=== PATIENT | female | born 1975 | race Caucasian/White ===

== ENCOUNTER → 2018-05-13 15:51 | Outpatient (CLI) | payer OTHER, SELFPAY ==
[2018-05-18 13:49] LABS: HPV APTIMA, High Risk Negative (Negative)
== END ==
PROVIDERS: Visit Provider Obstetrics & Gynecology
DX: Z12.4 Encounter for screening for malignant neoplasm of cervix (principal); N89.8 Other specified noninflammatory disorders of vagina
CPT/HCPCS: 87070; 87077; 87186; 87205; 88175; G0145

== ENCOUNTER → 2020-01-21 09:17 | Outpatient (CLI) | payer BC, SELFPAY ==
--- NOTE | 2020-01-21 09:20 | US_ITS ---
STUDY: ULTRASOUND BREAST - RIGHT REASON FOR EXAM: Female, 44 years old. swollen lymphnodes mammo today TECHNIQUE: Axial and longitudinal images of the RIGHT breast were performed with a high resolution ultrasound transducer. # OF IMAGES: 55 COMPARISON: None. FINDINGS: RIGHT Breast: There is no abnormality in the soft tissues of the breast to correlate with the palpable abnormality in the right axilla. There is no abnormal soft tissue tissue mass. There is no cyst formation. IMPRESSION: There is no abnormality in the soft tissues of the breast to correlate with the palpable abnormality in the right axilla. There is no abnormal soft tissue tissue mass. There is no cyst formation. ASSESSMENT CATEGORY: BIRADS Category 2: Benign. A letter regarding these results will be sent to the patient by the facility within 30 days. Electronically Signed: Cortney Mcdonough, at 14:08 EDT Tel , Service support , STUDY: ULTRASOUND BREAST - LEFT REASON FOR EXAM: Female, 44 years old. swollen lymphnodes mammo today TECHNIQUE: Axial and longitudinal images of the LEFT breast were performed with a high resolution ultrasound transducer. # OF IMAGES: 55 COMPARISON: None. FINDINGS: LEFT Breast: There is no abnormality in the soft tissues of the breast to correlate with the palpable abnormality in the left axilla. There is no abnormal soft tissue tissue mass. There is no cyst formation. US/Breast Limited Unilateral IMPRESSION: There is no abnormality in the soft tissues of the breast to correlate with the palpable abnormality in the left axilla. There is no abnormal soft tissue tissue mass. There is no cyst formation. ASSESSMENT CATEGORY: BIRADS Category 2: Benign. A letter regarding these results will be sent to the patient by the facility within 30 days. Electronically Signed: Cortney Mcdonough, at 14:09 EDT Tel , Service support ,
--- NOTE | 2020-01-21 09:20 | BI_ITS ---
MAMMOGRAPHY - BILATERAL DIAGNOSTIC REASON FOR EXAM: Female, 44 years old. Enlarged bilateral axillary lymph nodes. 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 2-D mediolateral oblique (MLO) and craniocaudad (CC) views of both breasts were obtained. CAD: Full Field Digital Mammography with Computer Added Detection was performed. Routine CC and MLO and displaced implant views were obtained. COMPARISON: 11/26/2018. FINDINGS: Breast Composition: The breasts are heterogeneously dense, which may obscure small masses. There are no dominant masses or suspicious calcifications. No other significant abnormalities are identified. BI/DIAG MAMM W/CAD, BILAT IMPRESSION: Stable bilateral diagnostic mammogram. One year follow-up recommended. (A) ASSESSMENT CATEGORY: BIRADS Category 2: Benign. A letter regarding these results will be sent to the patient by the facility within 30 days. Approximately 10% of breast cancers are not detected by mammography. A normal mammogram should not delay biopsy of a clinically suspicious abnormality. Electronically Signed: Cortney Mcdonough, at 14:20 EDT Tel , Service support ,
== END ==
PROVIDERS: PCP Family Medicine; Referring Provider Obstetrics & Gynecology; Visit Provider Obstetrics & Gynecology
DX: R59.9 Enlarged lymph nodes, unspecified (principal)
CPT/HCPCS: 76642; 77062; 77066; G0279